=== PATIENT | female | born 1970 | race Caucasian/White ===

== ENCOUNTER 2020-11-15 01:21 | Emergency (ER) | payer BC ==
[~2020-11-15] VITALS: Ht 160 cm; Wt 80.3 kg
[2020-11-15] MEDS ORDERED: LIDOCAINE-MPF 1%, 5ML ONE (01:43)
--- NOTE | 2020-11-15 01:46 | NUR ---
ASSESSMENT MADE. ERP AT BEDSIDE.
[2020-11-15] MEDS ORDERED: PROCHLORPERAZINE 5 MG/ML, 2ML ONE (01:51)
[2020-11-15] MEDS ORDERED: DIPHENHYDRAMINE 50 MG/ML, 1ML ONE (01:51)
[2020-11-15] MEDS ORDERED: DIPHENHYDRAMINE 50 MG/ML, 1ML IVPush ONE (02:00)
[2020-11-15] MEDS ORDERED: LIDOCAINE 1%, 10ML INFIL ONE (02:00)
[2020-11-15] MEDS ORDERED: PROCHLORPERAZINE 5 MG/ML, 2ML IVPush ONE (02:00)
[2020-11-15] MEDS ORDERED: SODIUM CHLORIDE 0.9% 1,000ML IVBOLUS ONE (02:00)
--- NOTE | 2020-11-15 02:04 | NUR ---
IV PLACED. BLOOD DRAWN. MEDICATED. AWAITING CT SCAN.
[2020-11-15 02:07] LABS: BASOPHILS % (AUTO) 0 % (0-1); EOSINOPHILS % (AUTO) 1 % (1-7); LYMPHOCYTES % (AUTO) 25 % (22-44); MD NO; MEAN CORPUSCULAR HEMOGLOBIN 31.7 pg (27.0-34.8); MEAN CORPUSCULAR HGB CONC 34.3 g/dL (32.4-35.8); MEAN PLATELET VOLUME 7.7 fL (7.4-10.4); MONOCYTES % (AUTO) 7 % (2-9); NEUTROPHILS % (AUTO) 67 % (42-75); PLATELET COUNT 431 x10^3/uL (130-400); RED BLOOD COUNT 3.95 x10^6/uL (3.82-5.3); RED CELL DISTRIBUTION WIDTH 13.4 % (9.6-15.2)
--- NOTE | 2020-11-15 02:12 | NUR ---
PATIENT STILL MOANING. NERVE BLOCK DONE BY ERP.
[2020-11-15 02:18] LABS: ALBUMIN 3.7 g/dL (3.4-5.0); ANION GAP 8 mmol/L (5-15); CALCIUM 8.5 mg/dL (8.5-10.1); CHLORIDE 107 mmol/L (98-107); CREATININE 0.76 mg/dL (0.55-1.02)
--- NOTE | 2020-11-15 02:21 | NUR ---
PATIENT TO CT SCAN.
--- NOTE | 2020-11-15 03:14 | NUR ---
PATIENT SLEEPING, VSS.
[2020-11-15] MEDS ORDERED: KETOROLAC 30 MG/1 ML IVPush ONE (04:00)
[2020-11-15] MEDS ORDERED: DIAZEPAM 5 MG/ML, 2ML IV ONE (04:00)
[2020-11-15] MEDS ORDERED: LIDODERM 5% PATCH TD ONE ×2 (04:00→04:03)
[2020-11-15] MEDS ORDERED: DIAZEPAM 5 MG/ML, 2ML ONE (04:02)
[2020-11-15] MEDS ORDERED: KETOROLAC 30 MG/1 ML ONE (04:03)
--- NOTE | 2020-11-15 04:30 | NUR ---
RE-MEDICATED. PATIENT SLEEPING. VSS. CHART UP FOR MD TO RE-EVAL.
--- NOTE | 2020-11-15 05:16 | NUR ---
PATIENT DISCHARGED WITH PRESCRIPTIONS AND INSTRUCTION. VERBALIZED UNDERSTANDING.
[2020-11-15 05:17] VITALS: BP 129/66
== END 2020-11-15 05:20 | disposition home or self-care (01) ==
LOC: ED 02:12
DX: G44.209 Tension-type headache, unspecified, not intractable (principal); R11.2 Nausea with vomiting, unspecified; M19.90 Unspecified osteoarthritis, unspecified site; K50.90 Crohn's disease, unspecified, without complications
CPT/HCPCS: 36415; 64405; 70450; 80048; 82040; 84703; 85025; 96361; 96374; 96375; 99284; J0780; J1200; J1885; J3360; J3490; J7030